=== PATIENT | female | born 2000 | race Caucasian/White ===

== ENCOUNTER 2022-10-03 14:15 | Inpatient (IN) | payer OTHER, SELFPAY ==
[2022-10-03] VITALS (23 sets, daily range): BP systolic 108–141; BP diastolic 58–97; PULSE 72–123; TEMP 36.2–37.3; O2SAT 91–100; BMI 32.1
--- NOTE | 2022-10-03 13:56 | OB.TRI.NOTE ---
HPI - General General Date of Service: 10/03/22 HPI Narrative CHAUNCEY LORENZO, is a 22 F who presents at 41 weeks with TRE: 09/26/22 for removal of outpatient cervical ripening device dilapan. Denies any vaginal bleeding, fluid leakage or contractions. Good movement. PFSH PFSH Home Medications vitamin #56-iron 35 mg and 5 mg-folic acid 1 mg-dha capsule 1 cap PO DAILY 10/03/22 [History Last Taken 10/03/22] Allergy/AdvReac Type Severity Reaction Status Date / Time No Known Allergies Allergy Verified 10/03/22 13:20 Social History Smoking Status: Never smoker Physical Exam Manual OB Exam: estimated gestational size, presentation cephalic, dilated 5cm, effaced 60 and station -1 NST FHR Rate Baby A Baseline: 145 Variability:: Moderate Accelerations:: 15 x 15 Decelerations:: None NST Reactive:: Yes Uterine Activity:: Irregular Assessment & Plan PLAN: Plan 1) Removal of dilapan 2) NST reactive 3) Return tonight at 1700 for induction of labor
--- NOTE | 2022-10-03 14:09 | HP.PCM.OB_ITS ---
HPI - General HPI Narrative CHAUNCEY LORENZO, is a 22 F at 41 weeks. TRE 09/26/22. who presents for removal of dilapan-S. PFSH PFSH Home Medications vitamin #56-iron 35 mg and 5 mg-folic acid 1 mg-dha capsule 1 cap PO DAILY 10/03/22 [History Last Taken 10/03/22] Allergy/AdvReac Type Severity Reaction Status Date / Time No Known Allergies Allergy Verified 10/03/22 13:20 Social History Smoking Status: Never smoker ROS Constitutional Constitutional: Reports systems reviewed and no addt'l complaints, except as documented; Denies headache(s) Eyes Eyes: Denies acute decrease in peripheral vision, blurry vision or change in vision ENT HEENT: Reports systems reviewed and no addt'l complaints, except as documented Cardiovascular Cardiovascular: Denies chest pain or dizziness Respiratory/Chest Respiratory/Chest: Denies cough, dyspnea, dyspnea on exertion, shortness of breath at rest or shortness of breath with exertion Gastrointestinal Gastrointestinal: Denies abdominal pain, diarrhea, nausea or vomiting Genitourinary Genitourinary: Denies abdominal discomfort Musculoskeletal Musculoskeletal: Denies limited range of motion Integumentary Integumentary: Reports systems reviewed and no addt'l complaints, except as documented Neurologic Neurologic: Reports systems reviewed and no addt'l complaints, except as documented Psychiatric Psychiatric: Reports systems reviewed and no addt'l complaints, except as documented Endocrine Endocrinology: Reports systems reviewed and no addt'l complaints, except as docu mented Hematologic/Lymphatic Hematologic/Lymphatic: Reports systems reviewed and no addt'l complaints, except as documented Allergic/Immunologic Allergic/Immunologic: Reports systems reviewed and no addt'l complaints, except as documented Vital Signs Vital Signs Vital Signs: 10/03/22 13:19 10/03/22 13:19 10/03/22 13:19 Temperature Temperature Source Temporal Pulse Rate 76 Blood Pressure 141/86 H BP Systolic 141 BP Diastolic 86 Pulse Ox 10/03/22 13:19 10/03/22 13:19 Temperature 98.6 F Temperature Source Pulse Rate Blood Pressure BP Systolic BP Diastolic Pulse Ox 98 Weight Weight: 181 lb 3.52 oz Body Mass Index (BMI) 32.1 Physical Exam Const alert and oriented x3 General Appearance: cooperative Orientation / Consciousness: awake, oriented to person, oriented to place and oriented to time Exam Limitations: no limitations HEENT normocephalic Head and Scalp: normal to inspection, normocephalic and atraumatic Face and Sinus: normal facial exam Eyes General Eye: normal appearance of both eyes Neck full ROM Chest Chest: symmetrical chest wall rise Resp normal respiratory effort and normal air movement Auscultation: clear to auscultation bilaterally Cardio regular rate, regular rhythm, S1 normal heart sound, S2 normal heart sound, no murmurs, no rub, no gallops and no clicks GI normal to inspection, nondistended, normoactive bowel sounds and non-tender appearance of the vagina normal Bladder / Kidney Exam: no CVA tenderness Manual OB Exam: estimated gestational size appropriate, presentation cephalic, dilated 5cm, effaced 60%, station -1 and other 5 dilapan s rods removed Back/Spine normal ROM Extremity normal to inspection and full ROM Skin no rashes or lesions noted Neuro oriented x3, CN's II-XII intact bilaterally and moves all extremities Sensorium / Orientation: awake, alert and oriented to person Motor Exam: clonus absent Deep Tendon Reflexes: Rt Patellar (L4): 2+ and Lt Patellar (L4): 2+ Labs Labs Labs: No Data to Display GBS negative RPR reactive, confirmation screen negative Rubella non Immune HBsAG negative HepC negative HIV negative A positive Assessment & Plan (1) Encounter for induction of labor: (2) Post-dates : (3) 41 weeks gestation of : (4) Late care: (5) Rubella non-immune status, antepartum: PLAN: Plan 1) Admit to labor and delivery 2) Routine labs 3) Preeclampsia labs 4) Dilapan S removed 5) NST reactive with variable decels 6) Pitocin for induction of labor 7) notified of admission
[2022-10-03] MEDS: 0.9% Saline Lock 10 ML Syringe IV ×2 (14:50→17:27)
[2022-10-03 15:11] LABS: Absolute Lymphocyte Count 1.87 X10^3/uL (0.83-4.51); Absolute Neutrophil Count 11.7 X10^3/uL (2.0-7.7); Basophil# 0.06 X10^3/uL; Basophil% 0.4 % (0-1); Eosinophil# 0.02 X10^3/uL; Eosinophils% 0.1 % (0-5); Hematocrit 35.9 % (37-47); Hemoglobin 11.3 g/dL (12.0-15.0); Lymphocyte # 1.87 X10^3/ul (0.83-4.51); Lymphocyte % 12.8 % (19-41); Mean Corp Hgb Conc 31.5 g/dL (32-36); Mean Corpuscular Hgb 25.8 pg (27.0-32.0); Mean Platelet Vol. 11.9 fl (6.2-12.0); Monocyte# 0.87 X10^3/uL; NRBC Flagged by Analyzer 0 % (0-5); Neutrophil # 11.68 X10^3/uL (2.7-7.7); Neutrophil % 80.2 % (47-70); Platelet Count 234 K/mm3 (150-450); RBC Distribution Width CV 13.2 % (11.6-14.6); RBC Distribution Width SD 39.2 fl (35.1-43.9); Red Blood Count 4.38 M/mm3 (4.2-5.4); White Blood Count 14.6 K/mm3 (4.4-11.0)
[2022-10-03 15:24] LABS: AST(SGOT) 17 U/L (15-37); Alanine Aminotransfer ALT/SGPT 26 U/L (13-56); Creatinine, Serum 0.73 mg/dL (0.55-1.02); EST Glomerular Filtration Rate 104 mL/min (>60); Est Glom Filt Rate - Afr Amer 125 mL/min (>60)
[2022-10-03 15:25] LABS: Protein, Urine (Random) < 6.0 mg/dL (<11.9)
[2022-10-03 16:01] LABS: Syphilis Antibodies Reactive
[2022-10-03] MEDS: Lactated Ringers 1,000 ML 50 ML IV (17:27)
[2022-10-03] MEDS: Oxytocin 15 Units/NS 250ml 15 UNITS/250 ML IV.SOLN 2 UNITS IV (17:40)
[2022-10-03] MEDS: LACTATED RINGERS 500 ML 999 ML IV (20:18)
[2022-10-03] MEDS: fentaNYL-bupivacaine (epidural) 100 ML BAG EPIDURAL (21:09)
[2022-10-04] VITALS (44 sets, daily range): BP systolic 107–129; BP diastolic 53–75; PULSE 73–155; TEMP 36.1–37.7; O2SAT 82–100
[2022-10-04] MEDS: LACTATED RINGERS 500 ML 999 ML IV ×3 (00:04→22:01)
[2022-10-04] MEDS: fentaNYL-bupivacaine (epidural) 100 ML BAG EPIDURAL ×5 (01:19→22:01)
[2022-10-04] MEDS: Lactated Ringers 1,000 ML 200 ML IV ×4 (02:39→19:45)
--- NOTE | 2022-10-04 09:30 | PCM.PN.BLA ---
Progress Note Commfortable w/ epidural. FHTs reassuring. Cervix 4/80//2 AROM w/ return of moderate amound of clear fluid. IUPC placed.
[2022-10-04] MEDS: 0.9% Saline Lock 10 ML Syringe IV (16:13)
[2022-10-04] MEDS: DiphenhydrAMINE 50 MG/ML Syringe 25 MG IV (16:13)
[2022-10-04] MEDS: Acetaminophen 500 MG Tablet PO (16:58)
[2022-10-04] MEDS: Ondansetron 4 MG/2 ML Vial IV (22:13)
[2022-10-05] VITALS (21 sets, daily range): BP systolic 105–147; BP diastolic 43–83; PULSE 74–91; RESP 12–18; TEMP 36.3–37.3; O2SAT 92–100
--- NOTE | 2022-10-05 | PLAC_PTH ---
PATIENT: CHAUNCEY LORENZO LOC: [facility] U#:[id number] AGE/SX: 22/F ROOM: WP006 RE10/03/[address]: Dr. Sonia Roberts MD : 2000 BED: 1 DIS: 10/06/2022 SPEC #: [id number] RECD: 10/05/22 03:33 STATUS: JOEY REQ #: [id number] JC: 10/05/22 00:[address]: Sonia Roberts DEPT: SURGICAL PATHOLOGY RECD BY: Joseph Dee ENTERED: 10/05/22 11:33 SP TYPE: PLACENTA OTHR DR: Dr. Erin Polanco MD Tissues: Placenta, NOS Procedures: Surgery Specimen Level V HEADER OPERATION: section PRE-OP DIAGNOSIS: tachycardia TISSUE SUBMITTED: Placenta MICROSCOPIC DIAGNOSIS [place] placenta (538 gm): Umbilical cord ? acute funisitis. Placental membranes ? acute chorioamnionitis and acute deciduitis. Placental disc ? acute vasculitis of superficial placental vessels, Mansi-Allen change, foci of organizing intraparenchymal hemorrhage, remote infarcts, increased intraparenchymal microcalcifications and mild chronic decidual inflammation. AM:rosibel 10/07/2022 MICROSCOPIC DESCRIPTION Slides are reviewed. GROSS DESCRIPTION SPECIMEN: PLACENTA / CLINICAL INFORMATION: A. Weight: 3.385 kg B. Gestational Age: 41 weeks C. Sex: Male PLACENTAL WEIGHT (POST FIXATION): 538 gm PLACENTAL DIMENSIONS: 17.0 x 16.0 x 3.5 cm PLACENTAL SHAPE: Usual ovoid PLACENTAL WEIGHT FOR GESTATIONAL AGE: Within 10-99th percentile MEMBRANES - Present A. Insertion: Marginal B. Site of rupture from edge: 5.0 cm from edge of placental disc C. Color of membrane: Barr-law D. Abnormalities: None UMBILICAL CORD - Present A. Color: Barr-law B. Insertion: Eccentric C. Length: 37.0 cm D. Diameter: 1.5 cm E. Number of vessels: Three F. Abnormalities: None PLACENTAL DISC - Present A. Color of surface: Barr-law B. surface abnormalities: None C. Maternal cotyledons: Intact with minimal tears D. Attached retro placental clot: No clot E. Cut surface: Dark red and spongy F. Lesions: Serial sections reveal barr-white, firm lesions ranging in size from 1.2 to 3.0 cm in greatest dimension. G. Separate clot: Absent SECTIONS SUBMITTED: 1. Umbilical cord ( end notched) 2. Umbilical cord, placental end 3. Membrane roll 4. Placental disc, and maternal surfaces, lesions 5. Placental disc, and maternal surfaces, lesions 6. Placental disc, and maternal surfaces, lesions AM:rosibel 10/06/2022 TC:2 CPT: 24020
[2022-10-05] MEDS: Acetaminophen 500 MG Tablet PO (00:38)
[2022-10-05] MEDS: Sodium Citrate/Citric Acid 30 ML UDC PO (00:40)
--- NOTE | 2022-10-05 00:43 | EX.PCM.OBRPT ---
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 I came in to assess the patient. The fetus had significant caput. Position was MICHELLE but transverse. Epidural was adequate. She had only progressed from approximately 0 to +1 station to approximately +2 station with 3 hours of pushing. The head was slightly asynclitic. There is very little room in the pelvis. When I assessed the patient I discussed with her that I would not recommend a trial of the vacuum and felt section was the indicated route of delivery at this point. There was tachycardia but no maternal fever. Patient and her partner agreed after discussion of the risk benefits and alternatives to section to proceed with delivery. The patient was taken to the operating room. She was prepped and draped in the dorsal supine position with a leftward tilt. A Pfannenstiel skin incision was made approximately 2 cm above the symphysis pubis and carried through to underlying layer fascia with the scalpel. The fascia was incised incised in the midline and extended laterally with the Johnson scissors. The fascia was dissected off the rectus muscles with blunt and sharp dissection. The rectus muscles were in the midline and the peritoneum was entered bluntly. The peritoneal incision was stretched and the bladder blade was placed. The uterine incision was made in a low transverse fashion with the scalpel and extended superiorly and inferiorly with blunt dissection. When the hysterotomy was made, moderate meconium stained fluid returned and the compliance vice president was called.. The infant's head was brought to the incision in the flexed position and delivered without difficulty. The remainder of the was delivered with gentle traction and fundal pressure in the standard fashion. The mouth and nares were bulb suctioned. The cord was clamped and cut as the infant was stimulated. Cord clamping was not delayed because the was not immediately vigorous.. The was handed off to the waiting nursing staff. The placenta was delivered with fundal massage and gentle traction in the standard fashion. Cord gases were collected. The uterus was exteriorized and cleared of all clots and debris. . The uterine incision was closed with #1 Vicryl in a running locked fashion. A second layer of the same suture was used in an imbricating fashion. The incision was examined and was found to be hemostatic. The uterus was placed back into the peritoneal cavity and 2 [id number] sutures were needed in the left apex of the incision to obtain hemostasis. Shari was placed over the incision.. The rectus muscles were examined and any bleeding was Bovie cauterized. The parietal peritoneum and rectus muscles were closed en bloc with an 0 Vicryl running suture. The surgical teams outer gloves were then changed. The rectus fascia was examined and any bleeding was Bovie cauterized and the rectus fascia was closed with 0 PDS suture in a running standard fashion. The subcutaneous tissue was examining and any bleeding was Bovie cauterized. The subcutaneous tissue was reapproximated with 3-0 Vicryl suture. The skin was closed in a subcuticular fashion by the MACHINIST LINOTYPE with me present in the labor and delivery suite. I performed the remainder of the procedure with assistance. All sponge, lap, and needle counts were correct. The patient was taken to her room for recovery in a stable condition. Presentation: Positive for Vertex Amniotic Membrane Rupture Type: Artificial Amniotic Fluid Description: Clear and Moderate meconium (at delivery) Placental Delivery Description: Expressed Placenta Disposition: Sent to Pathology Cord Vessel Description: 3 Vessels Cord Entanglement: Around neck x 1, loose Nuchal Cord Compression: Without compression Cord Gases: ABG and VBG A Gender: Male (Crew [id number]) (1 minute): 1 (5 minute): 9 Delayed Cord Clamping: No Complications Complications: none
[2022-10-05] MEDS: Cefazolin 2 GM in 0.9% Normal Saline 100 ML IV (00:51)
[2022-10-05] MEDS: Oxytocin 15 Units/NS 250ml 15 UNITS/250 ML IV.SOLN 83 UNITS IV (01:50)
[2022-10-05] MEDS: 0.9% Saline Lock 10 ML Syringe IV ×2 (02:47→20:52)
[2022-10-05] MEDS: Ketorolac 30 MG/ML Syringe IV ×4 (02:48→20:51)
[2022-10-05 03:38] LABS: Pathology Specimen OB SEE PATHOLOGY REPORT
--- NOTE | 2022-10-05 04:07 | NURSING ---
epidural catheter removed. blue tip intact
[2022-10-05] MEDS: Lactated Ringers 1,000 ML 100 ML IV (04:59)
[2022-10-05] MEDS: Acetaminophen 500 MG Tablet 1000 MG PO ×3 (06:45→19:32)
[2022-10-05] MEDS: Senna/Docusate Sodium 1 Tablet PO (11:43)
[2022-10-06] MEDS: Acetaminophen 500 MG Tablet 1000 MG PO ×2 (01:37→07:21)
[2022-10-06 01:38] VITALS: BP 122/52; PULSE 97; RESP 16; TEMP 36.7
[2022-10-06] MEDS: Ibuprofen 600 MG Tablet PO ×2 (03:05→09:05)
[2022-10-06 05:42] LABS: Hematocrit 27.9 % (37-47); Hemoglobin 8.7 g/dL (12.0-15.0); Mean Corp Hgb Conc 31.2 g/dL (32-36); Mean Corpuscular Hgb 25.7 pg (27.0-32.0); Mean Corpuscular Volume 82.3 fL (81-99); Mean Platelet Vol. 11.4 fl (6.2-12.0); Platelet Count 193 K/mm3 (150-450); RBC Distribution Width CV 13.7 % (11.6-14.6); RBC Distribution Width SD 40.3 fl (35.1-43.9); Red Blood Count 3.39 M/mm3 (4.2-5.4)
[2022-10-06 08:20] VITALS: BP 116/54; PULSE 87; RESP 16; TEMP 36.6
--- NOTE | 2022-10-06 09:01 | PCM.PN.OB ---
Subjective Subjective Pain controlled Objective Data Objective Data Vital Signs: Vital Signs Temp Pulse Resp BP Pulse Ox O2 Del Method 97.9 F 87 16 116/54 L 99 Room Air 10/06/22 08:20 10/06/22 08:20 10/06/22 08:20 10/06/22 08:20 10/05/22 19:33 10/06/22 08:20 Oxygen Delivery Method Room Air Weight: 181 lb 3.52 oz Body Mass Index (BMI) 32.1 Intake & Output: Intake and Output for Last 24 Hours 10/04/22 10/05/22 10/06/22 23:59 23:59 23:59 Intake Total 4939.33 / 4939.33 2638.5 / 2638.5 Output Total 2950 / 2950 3401 / 3401 Balance 33 / 33 -762.5 / -762.5 Lab / Micro Data Result Diagrams: 10/06/22 05:35 10/03/22 14:50 Labs: Laboratory Results - last 24 hr 10/06/22 05:35: WBC 25.0 H, RBC 3.39 L, Hgb 8.7 L, Hct 27.9 L, MCV 82.3, MCH 25.7 L, MCHC 31.2 L, RDW Std Deviation 40.3, RDW Coeff of Grupo 13.7, Plt Count 193, MPV 11.4 Physical Exam Const alert, oriented x3 and no apparent distress HEENT normocephalic GI soft to palpation, non-tender and non-distended GI Narrative: fundus firm, mid & below umbilicus Incision - bandage c/d/i Extremity normal to inspection and no calf tenderness Assessment & Plan (1) delivery delivered: COMMENT: POD#1 PLAN: Heme - HDS, iron for anemia of ID - AF, no signs infection ROutine care & plan for d/c to home per patient request
--- NOTE | 2022-10-06 09:03 | DCINST_ITS ---
Discharge Instructions Diet Discharge Diet: No restrictions Activity Discharge Activity: May Shower May resume sexual activity in: 6 weeks Weight Bearing Status: Weight bearing as tolerated Dressing / Incision Call your doctor if your incision/area has: Continuous Slow Oozing, Sudden Increased Bleeding, Increased Pain/ Swelling, Increased Redness, Foul Smelling Discharge and Swelling at the incision site Call your doctor if you observe: Fever of 101 or Higher, Coldness, Increased Pain, Change in Color, Inability to urinate, Inability to have a bowel movement, Using more than 1 pad per hour, Shortness of breath, Dizziness, Fainting spells, Chest pain, Increased palpitations (irregular heartbeat), Calf discomfort and Uncontrolled pain Suture Line Care: Avoid Pulling/Pushing and Avoid Pinching/Bending Remove Dressing in: 1 week Cleanse incision/area with: Soap & Water Follow Up Care Please Follow Up With: Ann Marie Kelly MD When: Follow up in 2 and 6 weeks for visits. Test Results: Test results from this visit will be discussed in further detail at your follow- up appointment, if applicable. Discharge Plan Admission Admit Date/Time: 10/03/22 14:15 Primary Reason for Your Visit: section Attending Provider: Sonia Roberts Primary Care Provider: Erin Polanco Discharge Orders/Prescriptions Prescriptions: New acetaminophen 500 mg Tablet 1,000 mg PO Q6H Qty: 0 0RF ibuprofen 600 mg Tablet 600 mg PO Q6H Qty: 0 0RF Slow Fe 142 mg (45 mg iron) tablet extended release 142 mg PO DAILY Qty: 30 3RF Continued PNV #[id number]-yruo-[id number] acid-dha 35 mg iron-5 mg iron-1 mg Capsule 1 cap PO DAILY Referrals / Follow Up: Erin Polanco MD [Primary Care Provider] - Disposition Disposition (needs filled in before D/C Order can be placed): Home, Self Care
== END 2022-10-06 12:35 | disposition home or self-care (01) | DRG 786 ==
LOC: WPOUT 14:19 → WP 14:19
PROVIDERS: Advanced Practice Midwife; Admitting Provider Obstetrics & Gynecology; PCP Pediatrics; Visit Provider Obstetrics & Gynecology
DX: O76 Abnormality in fetal heart rate and rhythm complicating labor and delivery (principal); O41.1230 Chorioamnionitis, third trimester, not applicable or unspecified; O48.0 Post-term pregnancy; O62.1 Secondary uterine inertia; O77.0 Labor and delivery complicated by meconium in amniotic fluid; O69.2XX0 Labor and delivery complicated by other cord entanglement, with compression, not applicable or unspecified; O99.02 Anemia complicating childbirth; Z37.0 Single live birth; Z3A.41 41 weeks gestation of pregnancy
CPT/HCPCS: 59025; 59050; 82565; 82570; 84156; 84450; 84460; 84550; 85025; 85027; 86780; 86850; 86900; 86901; 88307; 99221; J7120; A4216; G0378; J2405